=== PATIENT | male | born 1960 | race Caucasian/White ===

== ENCOUNTER 2016-09-05 10:50 | Emergency (ER) | payer SELFPAY ==
[2016-09-05 11:34] VITALS: BP 130/86
--- NOTE | 2016-09-05 12:09 | RAD ---
HISTORY: Lifting injury, left elbow pain COMPARISONS: None VIEWS: 4, Frontal, lateral, and oblique views of the left elbow FINDINGS: BONE DENSITY: Normal. BONES: There is no displaced fracture. 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 SOFT TISSUES: There is soft tissue swelling of the distal posterior humerus OTHER FINDINGS: None. IMPRESSION: 1. OSTEOARTHRITIS. 2. SOFT TISSUE SWELLING. 3. NO ACUTE OSSEOUS INJURY. IF SYMPTOMS PERSIST, RECOMMEND REPEAT IMAGING
--- NOTE | 2016-09-05 13:09 | UC ---
Elbow Pain - HPI Summary HPI Summary: LEFT ELBOW SWELLING AND PAIN WITH FLEXION AFTER SHOVELING SNOW AND LIFTING BAGS OF SALT THREE DAYS AGO. - History of Current Complaint Chief Complaint: UCUpperExtremity Stated Complaint: LT ELBOW INJURY Time Seen by Provider: 09/05/16 11:19 Hx Obtained From: Patient, Family/All Round Butcher Onset/Duration: Days Severity Initially: Mild Severity Currently: Moderate Pain Intensity: 0 Pain Scale Used: 0-10 Numeric Location Of Pain: Is Discrete @ - LEFT ELBOW Character: Dull, Aching Alleviating Factor(s): Rest, Ice Associated Signs And Symptoms: Positive: Swelling - Allergies/Home Medications Allergies/Adverse Reactions: Allergies Allergy/AdvReac Type Severity Reaction Status Date / Time Bee Venom Allergy Hives Verified 09/05/16 11:26 PMH/Surg Hx/FS Hx/Imm Hx Previously Healthy: Yes Endocrine History Of: Denies: Diabetes, Thyroid Disease Cardiovascular History Of: Denies: Cardiac Disorders, Hypertension Respiratory History Of: Reports: Asthma - As child Denies: COPD GI/ History Of: Denies: Ulcer - Surgical History Surgical History: Yes Surgery Procedure, Year, and Place: Tonsilectomy - Family History Known Family History: Negative: Other - NO JOINT LAXITY - Social History Occupation: Unemployed Lives: With Family Alcohol Use: Weekly Substance Use Type: None Smoking Status (MU): Never Smoked Tobacco - Immunization History Most Recent Influenza Vaccination: None Most Recent Tetanus Shot: UTD Most Recent Pneumonia Vaccination: None Review of Systems Constitutional: Negative Skin: Negative Eyes: Negative ENT: Negative Respiratory: Negative Cardiovascular: Negative Gastrointestinal: Negative Genitourinary: Negative Motor: Decreased ROM Musculoskeletal: Arthralgia - LEFT ELBOW, Decreased ROM - LEFT ELBOW, Edema - LEFT ELBOW, Myalgia - LEFT ELBOW, Other: - LEFT ELBOW TENDER AT [place] Neurological: Negative Psychological: Negative All Other Systems Reviewed And Are Negative: Yes Physical Exam Triage Information Reviewed: Yes Appearance: Well-Appearing, Well-Nourished, Pain Distress - MILD Vital Signs: Initial Vital Signs Temp 98.5 F 09/05/16 11:27 Pulse 85 09/05/16 11:27 Resp 18 09/05/16 11:27 BP 130/86 09/05/16 11:27 Pulse Ox 98 09/05/16 11:27 Vital Signs Reviewed: Yes Eye Exam: Normal Eyes: Positive: Conjunctiva Clear ENT Exam: Normal ENT: Positive: Normal ENT inspection, Hearing grossly normal, Pharynx normal, TMs normal Dental Exam: Normal Neck exam: Normal Neck: Positive: Supple, Nontender, No Lymphadenopathy Respiratory Exam: Normal Respiratory: Positive: Chest non-tender, Lungs clear, Normal breath sounds, No respiratory distress Cardiovascular Exam: Normal Cardiovascular: Positive: RRR, No Murmur, Pulses Normal Abdominal Exam: Normal Abdomen Description: Positive: Nontender, No Organomegaly Musculoskeletal: Positive: Strength Intact, ROM Intact, Strength Limited @ - LEFT ELBOW, ROM Limited @ - LEFT ELBOW, Edema @ - LEFT ELBOW/[place] EDEMA Neurological Exam: Normal Psychological Exam: Normal Psychological: Positive: Normal Response To Family Skin Exam: Normal Elbow Pain Course/Dx - Differential Dx/Diagnosis Differential Diagnosis/HQI/PQRI: Bursitis, Fracture (Closed), Sprain, Strain, Tendonitis Provider Diagnoses: LEFT ELBOW BURSITIS. LEFT ELBOW SPRAIN Discharge - Discharge Plan Condition: Stable Disposition: HOME Prescriptions: Naproxen [Naproxen 500 MG TABS] 500 mg PO BID #10 tab Patient Education Materials: Elbow Bursitis Exercises (GEN), Elbow Bursitis (ED ), Osteoarthritis (ED), Elbow Sprain (ED) Forms: *Work Release Referrals: [facility] [Outside] Sergio Rooney MD [Medical Doctor] - Chucho Mcneal MD [Primary Care Provider] - Additional Instructions: PHYSICAL THERAPY REFERRAL: You have been prescribed physical therapy. Treatments may include stretching, exercise, application of heat or cold, and other modalities. After an injury, PT can reduce swelling and pain. In recovery, PT is used to restore mobility and strength. Your specific treatment goals are: ___X__ Reduction of Swelling (EGS, US, ice as needed) ___X__ Pain Reduction (EGS, US, ice as needed) TENS Pack Fitting and Instruction Wound Hydrotherapy ___X__ Preservation of Mobility ___X__ Buddhism of Mobility _X___ Strength Buddhism ___X__ Work or Sports Hardening This instruction sheet also serves as your PHYSICAL THERAPY REFERRAL! Please take it with you to the therapist, so he/she will be aware of your diagnosis and treatment plan. You may see the physical therapist of your choice for these treatments, but may wish to check with your insurance to be sure the provider you select is covered. It's important to see the doctor to whom you have been referred for follow up.
== END 2016-09-05 12:34 | disposition home or self-care (01) ==
LOC: UCEAST 10:50
DX: M70.32 Other bursitis of elbow, left elbow (principal); X50.0XXA Overexertion from strenuous movement or load, initial encounter; X50.3XXA Overexertion from repetitive movements, initial encounter; Y93.9 Activity, unspecified; S53.402A Unspecified sprain of left elbow, initial encounter
CPT/HCPCS: 99203; G0463

== ENCOUNTER 2016-09-22 13:24 | Emergency (ER) | payer SELFPAY ==
[2016-09-22 14:59] VITALS: BP 124/77
--- NOTE | 2016-09-22 15:18 | UC ---
Elbow Pain - HPI Summary HPI Summary: After doing heavy shoveling and lifting around 09/02/16, was seen here 09/05 for L elbow pain and LUE swelling. Dx with bursitis and rx Naproxen, referred to PT , sports med, Dr. Rooney, and PCP. Pt has not called referrals, but sx were improving on their own until 4 days ago when swelling and pain suddenly increased after lifting heavy augur. - History of Current Complaint Chief Complaint: UCUpperExtremity Stated Complaint: ELBOW/ARM INJURY CONTINUED Time Seen by Provider: 09/22/16 15:06 Hx Obtained From: Patient Onset/Duration: Weeks, Still Present Severity Initially: Moderate Severity Currently: Moderate Location Of Pain: Is Discrete @ Character: Aching Associated Signs And Symptoms: Positive: Swelling, Redness - Allergies/Home Medications Allergies/Adverse Reactions: Allergies Allergy/AdvReac Type Severity Reaction Status Date / Time Bee Venom Allergy Hives Verified 09/22/16 14:59 PMH/Surg Hx/FS Hx/Imm Hx Endocrine History Of: Denies: Diabetes, Thyroid Disease Cardiovascular History Of: Denies: Cardiac Disorders, Hypertension Respiratory History Of: Reports: Asthma - As child Denies: COPD GI/ History Of: Denies: Ulcer - Surgical History Surgical History: Yes Surgery Procedure, Year, and Place: Tonsillectomy - Family History Known Family History: Negative: Other - NO JOINT LAXITY - Social History Occupation: Employed Full-time Alcohol Use: Occasionally Substance Use Type: None Smoking Status (MU): Never Smoked Tobacco - Immunization History Most Recent Influenza Vaccination: None Most Recent Tetanus Shot: UTD Most Recent Pneumonia Vaccination: None Review of Systems Constitutional: Negative Skin: Other - redness, warmth LUE Eyes: Negative ENT: Negative Respiratory: Negative Cardiovascular: Negative Gastrointestinal: Negative Genitourinary: Negative Motor: Negative Neurovascular: Negative Musculoskeletal: Arthralgia Neurological: Negative Psychological: Negative All Other Systems Reviewed And Are Negative: Yes Physical Exam Triage Information Reviewed: Yes Appearance: Well-Appearing, Well-Nourished, Pain Distress - with LUE movement Vital Signs: Initial Vital Signs Temp 98.3 F 09/22/16 14:55 Pulse 70 09/22/16 14:55 Resp 16 09/22/16 14:55 BP 124/77 09/22/16 14:55 Pulse Ox 98 09/22/16 14:55 Vital Signs Reviewed: Yes Eye Exam: Normal Eyes: Positive: Conjunctiva Clear ENT Exam: Normal ENT: Positive: Normal ENT inspection, Hearing grossly normal, Pharynx normal, TMs normal Dental Exam: Normal Neck exam: Normal Neck: Positive: Supple, Nontender, No Lymphadenopathy Respiratory Exam: Normal Respiratory: Positive: Chest non-tender, Lungs clear, Normal breath sounds, No respiratory distress, No accessory muscle use Cardiovascular Exam: Normal Cardiovascular: Positive: RRR, No Murmur Musculoskeletal: Positive: ROM Limited @ - L elbow, Edema @ - LUE from supracondylar region down to fingers; notably red and warm as well Neurological Exam: Normal Neurological: Positive: Alert Psychological Exam: Normal Skin Exam: Other - redness, swelling, warmth Elbow Pain Course/Dx - Differential Dx/Diagnosis Provider Diagnoses: L elbow injury. LUE edema Discharge - Discharge Plan Condition: Stable Disposition: HOME Prescriptions: Cephalexin CAP* [Keflex CAP*] 500 mg PO QID #20 cap Naproxen [Naproxen 500 MG TABS] 500 mg PO BID #10 tab Patient Education Materials: Swollen Joint (ED) Forms: *Work Release Referrals: Chucho Mcneal MD [Primary Care Provider] - Chucho Cruz MD [Medical Doctor] - 4 Days Additional Instructions: Please call the orthopedics office to arrange for an appointment as soon as possible.
--- NOTE | 2016-09-22 15:44 | RAD ---
INDICATION: Pain. No direct trauma. COMPARISON: September 05, 2016 TECHNIQUE: AP, lateral, and oblique views were obtained. FINDINGS: There is no acute bony change. There is traction spurring from the proximal ulna. The elbow articulates normally. There is prominent soft tissue swelling about the posterior distal ulna. The findings may be related to olecranon bursitis. IMPRESSION: FINDINGS SUSPICIOUS FOR OLECRANON BURSITIS.
== END 2016-09-22 16:11 | disposition home or self-care (01) ==
LOC: UCEAST 13:24
DX: S59.902A Unspecified injury of left elbow, initial encounter (principal); Y93.H1 Activity, digging, shoveling and raking; Z91.030 Bee allergy status
CPT/HCPCS: 99212; G0463